=== PATIENT | male | born 1985 | race Caucasian/White ===

== ENCOUNTER 2016-04-10 00:05 | Inpatient (IN) | payer OTHER ==
[~2016-04-10] VITALS: Ht 188 cm; Wt 117.3 kg
[~2016-04-10 00:05] MED LIST: ALKA-SELTZER O1 EACH PO; AMLODIPINE BESYL5 MG PO; AZITHROMYCIN500 M1 PO; DILAUDID2 MG PO; FLOMAX0.4 MG PO; GABAPENTIN100 MG PO; HYDROCHLOROTHIA25 MG PO; IBUPROFEN200 M1 PO; MEDROL DOSEPAK4 MG PO; MIRTAZAPINE15 MG PO; MIRTAZAPINE30 MG PO; NEURONTIN100 MG PO; NICOTINE PATCH1 EAC2 TD; NORCO 5/3251 TABLET PO; ONDANSETRON HCL4 MG PO; PEPTO BISMOL240 ML PO; PEPTO-BISM525 MG/15 PO; TAMSULOSIN HCL0.4 MG PO; TUMS500 MG PO; TYLENOL EXTRA500 MG PO; TYLENOL REGULA325 MG PO; VENTOLIN HFA18 GM IH
[2016-04-10 00:54] LABS: MCH 28.8 PG (29.0-34.0); MCHC 34.2 G/DL (30.0-36.0); MCV 84.2 FL (86-99); MEAN PLAT.VOLUME 9.9 uM^3 (9.0-12.4); RBC DIS.WIDTH-CV 14.9 % (11.8-14.6); RBC DIS.WIDTH-SD 43.5 % (39-53); RED BLOOD COUNT 2.85 M/uL (4.00-5.50); WHITE BLOOD COUNT 1.6 K/uL (4.1-10.2)
[2016-04-10 00:55] LABS: PLATELET COUNT 120 K/uL (156-360)
[2016-04-10 00:58] LABS: CHLORIDE 105 mEq/L (99-109); POTASSIUM 4.1 mEq/L (3.7-5.4); SODIUM 138 mEq/L (136-147)
[2016-04-10 01:00] LABS: GLUCOSE 124 mg/dL (70-99)
[2016-04-10 01:01] LABS: ANION GAP 8 MEQ/L (2-14)
[2016-04-10 01:02] LABS: TOTAL BILIRUBIN 0.2 mg/dL (0.0-1.0)
[2016-04-10 01:04] LABS: ALKALINE PHOSPHATASE 37 IU/L (3-129); GFR ESTIMATE (CALCULATED) 44 mL/min/
[2016-04-10 01:05] LABS: UREA NITROGEN (BUN) 20 mg/dL (9-23)
[2016-04-10 01:47] LABS: ADD MIUA? YES; BILIRUBIN NEGATIVE; BLOOD MODERATE; COLOR YELLOW ((YELLOW)); GLUCOSE (STRIP) NEGATIVE; KETONES NEGATIVE; LEUKOCYTES NEGATIVE; NITRITE NEGATIVE; PROTEIN (STRIP) 30; SPECIFIC GRAVITY 1.012 (1.000-1.030); UROBILINOGEN 0.2 MG/DL (0.2-1.0)
[2016-04-10 01:50] LABS: BACTERIA RARE /HPF; EPITHELIAL CELLS RARE /HPF; MUCUS TRACE /LPF; RED BLOOD CELLS 0-5 /HPF (0-5); UCUL ADDED? NO; UNCLASSIFIED CRYSTALS 1+ /HPF; WHITE BLOOD CELLS 20-30 /HPF (0-5)
[2016-04-10 02:00] LABS: EOSINOPHIL (%) 2.4 % (0-5); HEMATOLOGY COMMENT 1 REV; LYMPHOCYTE COUNT 0.8 K/uL (1.0-2.8); MONOCYTE (%) 44.2 % (3-12); MONOCYTE COUNT 0.7 K/uL (0-0.8); NEUTROPHIL (%) 7.3 % (45-76); NEUTROPHIL COUNT 0.1 K/uL (1.8-6.4); PLAT.SUFFICIENCY ADEQUATE
[2016-04-10] MEDS ORDERED: HYDROCODON-ACE1 EAC7 PO (09:17)
[2016-04-10] MEDS ORDERED: GABAPENTIN100 MG PO (09:17)
[2016-04-10 13:47] VITALS: BP 141/79
[2016-04-10 16:11] VITALS: BP 130/67
[2016-04-11] VITALS (9 sets, daily range): BP systolic 120–145; BP diastolic 57–85
[2016-04-11 06:52] LABS: HEMATOCRIT 20.2 % (38.0-50.0); MCH 28.7 PG (29.0-34.0); MCHC 34.7 G/DL (30.0-36.0); MCV 82.8 FL (86-99); PLATELET COUNT 109 K/uL (156-360); RBC DIS.WIDTH-CV 15.5 % (11.8-14.6); RBC DIS.WIDTH-SD 46.4 % (39-53); RED BLOOD COUNT 2.44 M/uL (4.00-5.50)
[2016-04-11 06:55] LABS: WHITE BLOOD COUNT 2.8 K/uL (4.1-10.2)
[2016-04-11 06:59] LABS: ANION GAP 9 MEQ/L (2-14); CHLORIDE 106 MEQ/L (99-109); GFR ESTIMATE (CALCULATED) > 59 mL/min/; POTASSIUM 3.7 MEQ/L (3.7-5.4); SAMPLE HEMOLYSIS CHECK 0; SAMPLE ICTERIC CHECK 0; SAMPLE LIPEMIA CHECK 0; SODIUM 140 MEQ/L (136-147); UREA NITROGEN (BUN) 10 mg/dL (9-23)
[2016-04-11 07:00] LABS: GLUCOSE 90 mg/dL (70-99)
[2016-04-11 07:51] LABS: EOSINOPHIL (%) 1.1 % (0-5); HEMATOLOGY COMMENT 1 SMEAR COMPATIBLE; IMMATURE GRANULOCYTE (%) 1.1 % (0.0-0.7); LYMPHOCYTE COUNT 0.9 K/uL (1.0-2.8); MONOCYTE (%) 39.1 % (3-12); MONOCYTE COUNT 1.1 K/uL (0-0.8); NEUTROPHIL (%) 24.6 % (45-76); NEUTROPHIL COUNT 0.7 K/uL (1.8-6.4); USER ID STC
[2016-04-11] MEDS ORDERED: Magic Mouthwash Garg MM (12:31)
[2016-04-11] MEDS ORDERED: HYDROCODON-ACE1 EAC7 PO (12:38)
[2016-04-12 00:20] VITALS: BP 137/80
== END 2016-04-12 07:30 | disposition home or self-care (01) | DRG 809 ==
LOC: EME 00:05 → 5EAST 06:35 → EDOF 06:35 → 5EAST 13:36
PROVIDERS: Hospitalist
PROC: 30233N1 Transfusion of Nonautologous Red Blood Cells into Peripheral Vein, Percutaneous Approach (ICD-10-PCS; principal; 2016-04-11)
DX: D70.1 Agranulocytosis secondary to cancer chemotherapy (principal); C78.7 Secondary malignant neoplasm of liver and intrahepatic bile duct; N17.9 Acute kidney failure, unspecified; N12 Tubulo-interstitial nephritis, not specified as acute or chronic; D69.6 Thrombocytopenia, unspecified; N39.0 Urinary tract infection, site not specified; K12.30 Oral mucositis (ulcerative), unspecified; K40.90 Unilateral inguinal hernia, without obstruction or gangrene, not specified as recurrent; F17.210 Nicotine dependence, cigarettes, uncomplicated; C76.8 Malignant neoplasm of other specified ill-defined sites; D50.9 Iron deficiency anemia, unspecified; D70.2 Other drug-induced agranulocytosis; D61.818 Other pancytopenia; R19.09 Other intra-abdominal and pelvic swelling, mass and lump; C62.90 Malignant neoplasm of unspecified testis, unspecified whether descended or undescended; Z96.0 Presence of urogenital implants
CPT/HCPCS: 74176; 80048; 80053; 81003; 83605; 83690; 85025; 85027; 86850; 86900; 86901; 86920; 87040; 87086; 99281; 99285; J0692; J1170; J1650; J1885; J2405; J2765; J7030; J7050; P9016

== ENCOUNTER 2017-09-18 07:09 | Emergency (ER) | payer OTHER ==
[~2017-09-18] VITALS: Ht 190.5 cm; Wt 149.1 kg
[~2017-09-18 07:09] MED LIST changes: +HYDROCODON-ACE1 EAC7 PO; +Magic Mouthwash Garg MM
[2017-09-18 08:12] LABS: HEMATOCRIT 35.8 % (38.0-50.0); MCH 27.9 PG (29.0-34.0); MCHC 33.5 G/DL (30.0-36.0); MCV 83.3 FL (86-99); PLATELET COUNT 203 K/uL (156-360); RBC DIS.WIDTH-CV 14.3 % (11.8-14.6); RBC DIS.WIDTH-SD 43.4 % (39-53); WHITE BLOOD COUNT 9.9 K/uL (4.1-10.2)
[2017-09-18 08:31] LABS: ALBUMIN 4.1 g/dL (3.2-4.8); CHLORIDE 109 mEq/L (99-109); POTASSIUM 3.8 mEq/L (3.7-5.4); SODIUM 142 mEq/L (136-147)
[2017-09-18 08:35] LABS: TOTAL BILIRUBIN 0.3 mg/dL (0.0-1.0)
[2017-09-18 09:27] LABS: GLUCOSE 101 mg/dL (70-99)
[2017-09-18 09:31] LABS: ALKALINE PHOSPHATASE 52 IU/L (3-129); CREATININE 1.1 mg/dL (0.6-1.3); GFR ESTIMATE (CALCULATED) > 59 mL/min/ (58.99-99999)
[2017-09-18 09:32] LABS: UREA NITROGEN (BUN) 12 mg/dL (9-23)
[2017-09-18 09:33] LABS: AST (GOT) 17 IU/L (2-34)
[2017-09-18 09:34] LABS: ALT (GPT) 32 IU/L (3-49)
[2017-09-18 10:45] LABS: APPEARANCE CLEAR ((CLEAR)); BILIRUBIN NEGATIVE; BLOOD SMALL; COLOR YELLOW ((YELLOW)); GLUCOSE (STRIP) NEGATIVE; KETONES NEGATIVE; LEUKOCYTES NEGATIVE; NITRITE NEGATIVE; PROTEIN (STRIP) NEGATIVE; SPECIFIC GRAVITY 1.025 (1.000-1.030); UROBILINOGEN 0.2 MG/DL (0.2-1.0)
[2017-09-18 10:47] LABS: BACTERIA RARE /HPF; EPITHELIAL CELLS RARE /HPF; MUCUS TRACE /LPF; RED BLOOD CELLS 0-5 /HPF (0-5); UCUL ADDED? NO; WHITE BLOOD CELLS 0-5 /HPF (0-5)
[2017-09-18] MEDS ORDERED: FIORICET,ESG1 TABLET PO (11:20)
[2017-09-18] MEDS ORDERED: REGLAN10 MG PO (11:20)
[2017-09-18 11:30] VITALS: BP 124/82
== END 2017-09-18 11:33 | disposition home or self-care (01) ==
LOC: EME 07:09
PROVIDERS: Physician Assistant
DX: R51 Headache (principal); R60.0 Localized edema; I10 Essential (primary) hypertension; Z85.47 Personal history of malignant neoplasm of testis; Z90.79 Acquired absence of other genital organ(s); Z92.21 Personal history of antineoplastic chemotherapy; Z91.19 Patient's noncompliance with other medical treatment and regimen; F17.200 Nicotine dependence, unspecified, uncomplicated; Z88.5 Allergy status to narcotic agent
CPT/HCPCS: 70450; 74176; 80053; 81003; 85027; C1751